=== PATIENT | female | born 1990 | race Caucasian/White ===

== ENCOUNTER 2018-09-27 09:26 | Emergency (ER) | payer OTHER ==
[~2018-09-27] VITALS: Ht 154.9 cm; Wt 52.2 kg
[2018-09-27 11:39] VITALS: BP 103/58
== END 2018-09-27 11:59 | disposition home or self-care (01) ==
LOC: ED 09:26
DX: S63.610A Unspecified sprain of right index finger, initial encounter (principal); S20.311A Abrasion of right front wall of thorax, initial encounter; V43.62XA Car passenger injured in collision with other type car in traffic accident, initial encounter; Y93.89 Activity, other specified; Y92.89 Other specified places as the place of occurrence of the external cause; Y99.8 Other external cause status
CPT/HCPCS: J1885; Q0092